=== PATIENT | female | born 1955 ===

== ENCOUNTER 2017-06-14 06:49 | Day surgery (SDC) | payer MEDICARE, OTHER ==
[2017-06-13 09:52] VITALS: BMI 22.6
[2017-06-14] MEDS ORDERED: MethylPREDNISolone Depo 40 mg/ml Inj ONE (07:26)
[2017-06-14] MEDS ORDERED: Bupivacaine HCl 0.25% PF (10 ml) Inj ONE (07:26)
[2017-06-14] MEDS ORDERED: Iohexol 240 (50 ml) ONE (07:26)
[2017-06-14] MEDS ORDERED: Lactated Ringer's 1,000 ML IV ONE ×3 (07:44)
[2017-06-14] MEDS ORDERED: Propofol 10 mg/ml Inj (20 ML) ONE (07:59)
[2017-06-14 08:09] VITALS: O2SAT 99
[2017-06-14 11:12] VITALS: BP 112/69; PULSE 61; RESP 15; TEMP 97.5
--- NOTE | 2017-06-14 17:18 | RAD ---
PROCEDURE: Intraoperative Fluoroscopy. HISTORY: RADICULOPATHY FINDINGS: Fluoroscopic assistance was provided for epidural injection. Please fluoro time employed
== END 2017-06-14 10:48 | disposition home or self-care (01) ==
LOC: C.SDS 06:49
PROVIDERS: ATTEND Anesthesiology Pain Medicine
DX: M54.16 Radiculopathy, lumbar region (principal); M47.816 Spondylosis without myelopathy or radiculopathy, lumbar region; M51.36 Other intervertebral disc degeneration, lumbar region
CPT/HCPCS: 62322; J1030; J2704; J7120; Q9966

== ENCOUNTER 2018-08-10 04:57 | Emergency (ER) | payer MEDICARE, OTHER ==
[2018-08-10 04:59] VITALS: BMI 22.6
[2018-08-10] MEDS: Sodium Chloride 0.9% 1,000 ML IV ONE (05:46)
[2018-08-10 05:53] LABS: BASO % 0.4 % (0.0-2.0); EOS # 0.2 K/uL (0.0-0.7); EOS % 2.7 % (0.0-4.0); HEMOGLOBIN 13.9 g/dL (11.0-16.0); LYMPH # 1.7 K/uL (1.0-4.3); MEAN CELL VOLUME 87.7 fL (81.0-99.0); MEAN CORPUSCULAR HEMOGLOBIN 29.4 pg (27.0-31.0); MEAN CORPUSCULAR HGB CONC 33.5 g/dL (33.0-37.0); MEAN PLATELET VOLUME 8.8 fL (7.2-11.7); MONO # 0.4 K/uL (0.0-0.8); NEUT % 67.9 % (50.0-75.0); RBC 4.74 Mil/uL (3.80-5.20); RED CELL DISTRIBUTION WIDTH 14.9 % (11.5-14.5); WHITE BLOOD COUNT 7.3 K/uL (4.8-10.8)
--- NOTE | 2018-08-10 05:53 | C.PDOC ---
History Of Present Illness 63 year old female with PMHx of vertigo presents to the ED c/o dizziness, described as spinning sensation. Patient states symptoms feel similar to previous vertigo exacerbations. Patient also c/o increased belching with epigastric abdominal pain associated with vomiting. While in the ED patient had brownish vomitus in the emesis bag. Patient reports is due to some brown drink she had last night at 21:00. Patient denies injury, fall, trauma, CP, SOB, diarrhea, blood in the stool, back pain, dysuria , hematuria. Time Seen by Provider: 08/10/18 05:15 Chief Complaint (Nursing): Dizziness/Lightheaded History Per: Patient History/Exam Limitations: no limitations Onset/Duration Of Symptoms: Days Current Symptoms Are (Timing): Still Present Number Of Syncopal Episodes: 1 Activity At Onset Of Symptoms: Lying Associated Symptoms Preceding Syncopal Episode: Vertigo Seizure Or Post-ictal Symptoms: None Possible Causative Factor(s): Vertigo Fall Associated With With Symptoms: No Recent travel outside of the [place]: No Additional History Per: Patient Past Medical History Reviewed: Historical Data, Nursing Documentation, Vital Signs Vital Signs: Last Vital Signs Temp 98 F 08/10/18 05:07 Pulse 80 08/10/18 05:07 Resp 20 08/10/18 05:07 BP 123/75 08/10/18 05:07 Pulse Ox 97 08/10/18 05:07 - Medical History PMH: Anxiety, Arthritis, Depression, Gastritis, GERD, HTN, Hypercholesterolemia, Hypothyroidism, Migraine, Osteoporosis Denies: Chronic Kidney Disease Surgical History: Endoscopy - [facility] Procedures COLONOSCOPY (12/10/14) ESOPHAGOGASTRODUODENOSCOPY [EGD] W/CLOSED BIOPSY (10/07/14) Family History: States: Unknown Family Hx, CAD - Social History Hx Tobacco Use: No Hx Alcohol Use: No Hx Substance Use: No - Immunization History Hx Tetanus Toxoid Vaccination: No Hx Influenza Vaccination: No Hx Pneumococcal Vaccination: No Review Of Systems Constitutional: Negative for: Fever, Chills Cardiovascular: Negative for: Chest Pain, Palpitations Respiratory: Negative for: Cough, Shortness of Breath Gastrointestinal: Positive for: Vomiting, Abdominal Pain. Negative for: Diarrhea Genitourinary: Negative for: Dysuria, Hematuria Skin: Negative for: Rash Neurological: Positive for: Dizziness. Negative for: Weakness, Numbness, Headache Physical Exam - Physical Exam Appears: Non-toxic, No Acute Distress Skin: Normal Color, Warm, Dry, No Pale Head: Atraumatic, Normacephalic Eye(s): bilateral: Normal Inspection Oral Mucosa: Moist Neck: Normal ROM, Supple Chest: Symmetrical Cardiovascular: Rhythm Regular Respiratory: Normal Breath Sounds, No Rales, No Rhonchi, No Wheezing Gastrointestinal/Abdominal: Soft, Tenderness (epigastric abd periumbilical ), No Guarding, No Rebound Rectal: Other (minimal stool in the vault) Extremity: Normal ROM, No Tenderness, No Swelling Neurological/Psych: Oriented x3, Normal Speech, Normal Cognition Gait: Steady ED Course And Treatment - Laboratory Results Result Diagrams: 08/10/18 05:49 08/10/18 05:49 O2 Sat by Pulse Oximetry: 97 (ON RA) Pulse Ox Interpretation: Normal Progress Note: Plan: - Labs. - CT abd/pelvis. - Antivert 25 mg PO. - Protonix 40 mg IVP. - IV fluids. - Zofran 4 mg IVP. - Occult blood stool. Labs reviewed incl guaic all wnl, pt comfortable - pending Abd ct. Case s/o SARAH hernandez pending CT for reeval Disposition - Disposition Disposition Time: 07:06 Condition: STABLE Forms: [facility] (Nauruan) - Clinical Impression Clinical Impression: Abdominal pain, Vertigo - PA / SIZE PAINTER / Resident Statement MD/DO has reviewed & agrees with the documentation as recorded. - Scribe Statement The provider has reviewed the documentation as recorded by the Scribe Pepito Martinez All medical record entries made by the Scribe were at my direction and personally dictated by me. I have reviewed the chart and agree that the record accurately reflects my personal performance of the history, physical exam, medical decision making, and the department course for this patient. I have also personally directed, reviewed, and agree with the discharge instructions and disposition. Physician Patient Turnover Patient Signed Over To: Johanna Hernandez Handoff Comments: pending abdomen CT for dispo
[2018-08-10 06:43] LABS: ALB/GLOB RATIO 1.3 (1.0-2.1); ALBUMIN 4.5 g/dL (3.5-5.0); ALT/SGPT 41 U/L (9-52); AST/SGOT 42 U/L (14-36); BLOOD UREA NITROGEN 18 mg/dL (7-17); CALCIUM 8.9 mg/dl (8.6-10.4); GFR NON-AFRICAN AMERICAN > 60; LIPASE 208 U/L (23-300)
[2018-08-10 06:46] LABS: INR 1.1; PROTHROMBIN TIME 11.6 SECONDS (9.7-12.2)
[2018-08-10 07:02] VITALS: TEMP 98.4
[2018-08-10] MEDS ORDERED: Iodixanol 320 MG/ML 100 ML BOTTLE IV ONE (07:19)
[2018-08-10] MEDS: Alum-Mag Hydrox-Simethicone Susp (30 mL) PO STA (09:34)
[2018-08-10] MEDS ORDERED: Aluminum Hydroxide/Magnesium Hydroxide Susp (30 mL) ONE (09:36)
--- NOTE | 2018-08-10 10:13 | CT ---
Date of service: 08/10/2018 PROCEDURE: CT Abdomen and Pelvis with contrast HISTORY: epigastric/ periumbilical pain, vomiting COMPARISON: 09/20/2014 TECHNIQUE: Contrast dose: Radiation dose: Total exam DLP = 389.19 mGy-cm. This CT exam was performed using one or more of the following dose reduction techniques: Automated exposure control, adjustment of the mA and/or kV according to patient size, and/or use of iterative reconstruction technique. FINDINGS: LOWER THORAX: Unremarkable. LIVER: Unremarkable. No gross lesion or ductal dilatation. GALLBLADDER AND BILE DUCTS: Unremarkable. PANCREAS: Unremarkable. No gross lesion or ductal dilatation. SPLEEN: Unremarkable. ADRENALS: Unremarkable. No mass. KIDNEYS AND URETERS: Unremarkable. No hydronephrosis. No solid mass. VASCULATURE: Unremarkable. No aortic aneurysm. No aortic atherosclerotic calcification or mural plaque present. BOWEL: Unremarkable. No obstruction. No gross mural thickening. APPENDIX: Normal appendix. PERITONEUM: Unremarkable. No free fluid. No free air. LYMPH NODES: Unremarkable. No enlarged lymph nodes. BLADDER: Unremarkable. REPRODUCTIVE: Unremarkable. BONES: No acute fracture. OTHER FINDINGS: None. IMPRESSION: Unremarkable contrast enhanced CT of the abdomen and pelvis.
[2018-08-10 12:04] VITALS: RESP 16; O2SAT 97
--- NOTE | 2018-08-10 12:55 | US ---
Date of service: 08/10/2018 HISTORY: RUQ pain COMPARISON: CT abdomen and pelvis with IV contrast performed 08/10/18 TECHNIQUE: Sonographic evaluation of the right upper quadrant of the abdomen. FINDINGS: LIVER: Measures 15.7 cm in length. Echogenic liver may be seen in setting of hepatic parenchymal disease or fatty infiltration. 1.8 x 1.6 x 2.0 cm focal hypodensity within the right hepatic lobe, possibly focal fatty sparing. The main portal vein appears patent with normal directional flow. No intrahepatic bile duct dilatation. GALLBLADDER: No gallstones. No gallbladder wall thickening or pericholecystic edema. Negative sonographic Jose's sign as assessed by the division sales manager. COMMON BILE DUCT: Measures 6 mm. PANCREAS: Not well-visualized. RIGHT KIDNEY: Measures approximately 9.8 x 4.3 x 4.7 cm. No obstructing calculus or hydronephrosis identified. AORTA: Limited visualization appears grossly unremarkable. IVC: Limited visualization appears grossly unremarkable. OTHER FINDINGS: None . IMPRESSION: Echogenic liver may be seen in setting of hepatic parenchymal disease or fatty infiltration. 1.8 x 1.6 x 2.0 cm focal hypodensity within the right hepatic lobe, possibly focal fatty sparing.
[2018-08-10 13:36] VITALS: BP 124/76; PULSE 85
--- NOTE | 2018-08-13 09:37 | CARD ---
APPROVED REPORT Date of service: 08/10/2018 EKG Measurement Heart [id number] <Conclusion> Normal sinus rhythm Normal ECG
== END 2018-08-10 13:36 | disposition home or self-care (01) ==
LOC: C.ER 04:57
DX: R10.13 Epigastric pain (principal); R42 Dizziness and giddiness
CPT/HCPCS: 74177; 76705; 80053; 83690; 85025; 85610; 85730; 86850; 86900; 93005; 96361; 96374; 96375; 99285; C9113; G0328; J2405; J7030; Q9967

== ENCOUNTER 2018-12-10 11:49 | Outpatient (CLI) | payer MEDICARE, OTHER | END 2018-12-10 11:50 | disposition home or self-care (01) | LOC: C.MAMMO 11:49 | DX: Z12.31 Encounter for screening mammogram for malignant neoplasm of breast (principal); M81.0 Age-related osteoporosis without current pathological fracture ==

== ENCOUNTER 2019-01-09 09:40 | Outpatient (CLI) | payer MEDICARE, OTHER | END 2019-01-09 09:41 | disposition home or self-care (01) | LOC: C.RADIC 09:40 ==